=== PATIENT | male | born 1965 | race Two or more races ===

== ENCOUNTER 2016-10-23 16:46 | Emergency (ER) | payer MEDICAID ==
[~2016-10-23] VITALS: Ht 170.2 cm; Wt 83.9 kg
--- NOTE | 2016-10-23 16:48 | NUR ---
LEFT FOREARM LACERATION, ACTIVE PULSATING BLEEDING x 45 MIN DIRECTOR OF SCOUT WORK
--- NOTE | 2016-10-23 17:45 | NUR ---
PAGED ON-CALL SURGEON DR MICHAEL FORD. TRANSFERRED CALL TO JACOB BOYER
--- NOTE | 2016-10-23 17:47 | NUR ---
LEFT MESSAGE FOR DR ARABELLA MCLEAN PER THE SUGGESTION OF DR MICHAEL FORD
--- NOTE | 2016-10-23 18:15 | NUR ---
DR ARABELLA KENDRICK CALLED BACK, TRANSFERRED CALL TO JACOB BAUMANN
[2016-10-23] MEDS ORDERED: GELATIN SPONGE,ABSORBABLE 1 SPONGE SPONGE TP ONE ×3 (18:26→19:40)
--- NOTE | 2016-10-23 18:30 | NUR ---
INITIATED CALL TO [facility] FOR HIGHER LEVEL OF CARE TRANSFER. TRANSFERRED CALL TO JACOB BAUMANN WHO PRESENTED CASE. EXPECTING CALL BACK.
--- NOTE | 2016-10-23 18:50 | NUR ---
LEFT MESSAGE FOR DR ARABELLA MCLEAN
--- NOTE | 2016-10-23 18:59 | NUR ---
RAC #18 IV ACCESS BLOOD SAMPLE COLLECTED SENT TO LAB
[2016-10-23] MEDS ORDERED: IV NS 0.9% 1,000 ML BAG IV ONE (19:00)
--- NOTE | 2016-10-23 19:01 | NUR ---
PLASTERER SPOT AT BEDSIDE
[2016-10-23 19:04] LABS: BASOPHILS # (AUTO) 0.1 /CMM (0.0-0.2); BASOPHILS % (AUTO) 1.4 % (0.0-2.0); EOSINOPHILS # (AUTO) 0.1 /CMM (0.0-0.7); EOSINOPHILS % (AUTO) 1.2 % (0.0-6.0); HEMATOCRIT 39 % (39-51); HEMOGLOBIN 13.4 g/dL (13.5-17.5); LYMPHOCYTES # (AUTO) 1.7 /CMM (0.8-4.8); LYMPHOCYTES % (AUTO) 29.4 % (20.0-44.0); MEAN CORPUSCULAR HEMOGLOBIN 32 PG (26.0-33.0); MEAN CORPUSCULAR HGB CONC 34 g/dl (31.0-36.0); MEAN CORPUSCULAR VOLUME 95 fL (80-96); MONOCYTES # (AUTO) 0.4 /CMM (0.1-1.30); MONOCYTES % (AUTO) 6.6 % (2.0-12.0); NEUTROPHILS # (AUTO) 3.6 /CMM (1.8-8.9); NEUTROPHILS % (AUTO) 61.4 % (43.0-81.0); PLATELET COUNT (AUTO) 251 /CMM (150-450); RED BLOOD CELL COUNT(AUTO) 4.15 MIL/uL (4.5-6.0); WHITE BLOOD COUNT (AUTO) 5.9 K/uL (4.3-11.0)
--- NOTE | 2016-10-23 19:12 | NUR ---
LEFT ANOTHER VOICEMAIL FOR DR FORD
--- NOTE | 2016-10-23 19:17 | NUR ---
GAVE REPORT TO ED FOR DENNISE
--- NOTE | 2016-10-23 19:18 | NUR ---
LEFT MESSAGE WITH DR CANCINO FOR CONSULT
[2016-10-23 19:19] LABS: CALCIUM, SERUM 8.7 mg/dL (8.5-10.1); POTASSIUM 3.9 mmol/L (3.5-5.1)
--- NOTE | 2016-10-23 19:25 | NUR ---
PT ACCEPTED AT [facility]. ACCEPTING MD DR BAUER. PTO# [id number].
--- NOTE | 2016-10-23 19:28 | NUR ---
CALLED [facility] FOR BLS TRANSPORT TO [facility]. ETA 20-30 MINUTES
[2016-10-23] MEDS ORDERED: CEFAZOLIN 1 GM ONE (19:29)
[2016-10-23] MEDS ORDERED: TDAP [DIPH/PERTUSSIS/TET] 0.5 ML VIAL IM ONE ×2 (19:30→19:46)
[2016-10-23] MEDS ORDERED: CEFAZOLIN 1 GM in IV D5W 50 ML IV ONE (19:30)
[2016-10-23 19:34] LABS: INR 1.02 (0.87-1.13); PROTHROMBIN TIME 10.6 SECS (9.5-12.7)
--- NOTE | 2016-10-23 20:01 | NUR ---
TRANSPORT AT BEDSIDE REPORT GIVEN TO EMT.
[2016-10-23 20:06] VITALS: BP 139/61
== END 2016-10-23 20:06 | disposition short-term general hospital (02) ==
LOC: ER 16:47
DX: S51.812A Laceration without foreign body of left forearm, initial encounter (principal); R79.1 Abnormal coagulation profile; W25.XXXA Contact with sharp glass, initial encounter; Y93.89 Activity, other specified; Y92.89 Other specified places as the place of occurrence of the external cause; Y99.0 Civilian activity done for income or pay
CPT/HCPCS: 36415; 73090; 80048; 85025; 85730; 86850; 90471; 90715; 96361; 96365; 99285; A4606; A6402 ×3; A6403 ×4; J0690 ×2; J7030 ×2; J7060 ×2; Z7610